=== PATIENT | female | born 1970 | race Caucasian/White ===

== ENCOUNTER 2023-02-24 17:29 | Emergency (ER) | payer OTHER ==
--- OUTSIDE RECORDS SUMMARY | 2023-02-24 17:33 | XMS REPORT | Continuity of Care Document ---
:1970 Author Organization [facility] t Address [address] [place] [address] [place] [id number] Care Team Providers Name Role Phone LUNA GUERRA Primary Care Physician Unavailable Joyce Shaver MD Attending Clinician Alonso Reyes MD Attending Clinician Doctor Unassigned, Humphrey Attending Clinician Unavailable Yary Elizabeth Attending Clinician [phone] Brenda Ruiz MD Attending Clinician YARY REILLY Attending Clinician Unavailable Provider, [facility] Attending Clinician Unavailable DULCE PENA Attending Clinician Unavailable EbrahiDulce Lange Attending Clinician Unknown, Attending Attending Clinician Unavailable Radiology Attending Clinician Unavailable RADIOLOGY Attending Clinician Unavailable Lab, [facility] Attending Clinician Unavailable Mandie Rolon Attending Clinician MANDIE HERBERT Attending Clinician Unavailable BILL SIMPSON Attending Clinician Unavailable MD BILL SIMPSON Attending Clinician Unavailable Luna Zimmerman Attending Clinician Stone Mayfield MD Attending Clinician MD BILL SIMPSON Admitting Clinician Unavailable Payers Payer Name Policy Type Policy Number Effective Date Expiration Date S ource Problems Condition Condition Condition Status Onset Resolution Last Treating Co mments Source Name Details Category Date Date Treatment Clinician Date Right ear Right ear Disease Active 0 Uni vers pain pain 1-25 ity of 00:00: [place] [facility] Right ear Right ear Disease Active 2019- Uni vers pain pain 1-25 ity of 00:00: [address] Allergies, Adverse Reactions, Alerts Allergy Allergy Status Severity Reaction(s) Onset Inactive Treating Comm ents Source Name Type Date Date Clinician NO KNOWN Drug Active Univers ALLERGIE Class ity of [facility] Social History Social Habit Start Date Stop Date Quantity Comments Source History [facility]MI University o f Alcohol Frequency [facility] edical Branch History SDMI University o f Alcohol Std Drinks [facility] History [facility] o f Alcohol Binge [facility] [address] Exposure to Not sure University of SARS-CoV-2 (event) [facility] Tobacco use and 2023-02-17 2023-02-17 Smokeless [facility] exposure 00:00:00 00:00:00 tobacco non-user Hospital Alcohol intake 2023-02-17 2023-02-17 Current drinker Metho dist 00:00:00 00:00:00 of [facility] (finding) History of Social 2023-02-17 2023-02-[address] function 00:00:00 00:00:00 Hospital Alcohol Comment 2023-02-17 2023-02-17 casual [facility] 00:[facility] 00[facility]00:00 Hospital Cigarettes smoked 2018-01-16 2018-01-16 Univers ity of current (pack per 00:00:00 00:00:00 [facility] ) - Reported Branch Cigarette 2018-01-16 2018-01-16 University of pack-years 00:00:00 00:00:00 [facility] History of tobacco 1998-01-16 Cigarette Smoker University of use 00:00:00 [facility] Sex Ass[birth year] At [birth year] [facility]00 Hospital Smoking Status Start Date Stop Date Source Never smoked tobacco [facility] Former smoker 2018-01-16 00:00:00 2018-01-16 00:00:[address] [facility] Medications Ordered Filled Start Stop Current Ordering Indication Dosage Frequency Signature Comments Components Source Medication Medication Date Date Medication? Clinician (SIG) Name Name acetaminoph 2022- Yes 1000mg Q6H Take 2 M ethodi en (Tylenol 5-19 06-[address] Extra 00:00: 04:59 (1,000 mg Hospit a Strength) 00 :00 total) by l 500 MG mouth tablet every 6 (six) hours as needed for moderate pain for up to 30 days. ondansetron 2022- Yes 8mg Q8H Take 1 Met hodi ODT 02-17 tablet (8 st (ZOFRAN-ODT 00:00: 04:59 mg total) Hospita ) 8 MG 00 :00 by mouth l disintegrat every 8 ing tablet (eight) hours as needed for nausea or vomiting for up to 30 days. ibuprofen 2022- Yes 600mg Q6H Take 1 Meth karina (ADVIL) 600 02-[address] MG tablet 00:00: 04:59 (600 mg Hosp argelia 00 :00 total) by l mouth every 6 (six) hours as needed for mild pain or moderate pain for up to 20 days. nitrofurant 2022- Yes 100mg Q.5D Take 1 Me thodi oin, 02-[address] macrocrysta 00:00: 04:59 (100 mg Ho spita l-monohydra 00 :00 total) by l te, mouth 2 (Macrobid) (two) 100 MG times a capsule day for 7 days. traMADoL 2022- [place] [id number] 50mg Q6H Take 1 Metho di (ULTRAM) 50 02-17 tablet (50 s t mg tablet 00:00: 04:59 mg total) Ho spita 00 :00 by mouth l every 6 (six) hours as needed for moderate pain for up to 3 days .acute pain. sulfamethox 2020-10- No [id number] 1{tbl} Take 1 Univers azole-trime 10-17 [id number] tablet by ity of thoprim 00:00: 05:59 mouth 2 [place] (BACTRIM 00 :00 (two) Medical DS) 800-160 times Branch mg per daily for tablet 7 days. venlafaxine 2020-10 Yes Univer s XR 37.5 mg 0-11 ity of 24 hr 00:00: [place] capsule 00 Medical Branch venlafaxine 2020-10 Yes Univer s XR 37.5 mg 0-11 ity of 24 hr 00:00: [place] capsule 00 Medical Branch venlafaxine 2020-10 Yes Univer s XR 37.5 mg 0-11 ity of 24 hr 00:00: [place] capsule Medical Branch venlafaxine 2020-10 Yes Univer s XR 37.5 mg 0-11 ity of 24 hr 00:00: [place] capsule Medical Branch venlafaxine 2020-10 Yes Univer s XR 37.5 mg 0-11 ity of 24 hr 00:00: [place] capsule Medical Branch venlafaxine 2020-10 Yes Univer s XR 37.5 mg 0-11 ity of 24 hr 00:00: [place] capsule Medical Branch venlafaxine 2020-10 Yes Univer s XR 37.5 mg 0-11 ity of 24 hr 00:00: [place] capsule 00 Medical Branch No known 2018- No Univers medications 8-06 ity of 14:07: [place] 58 Medical Branch triamcinolo Yes [id number] Apply to [address] area(s) 3 ity of acetonide 00:00: (three) [place] 0.1 % 00 times Medical ointment daily. Branch hydrOXYzine Yes [id number] 1-2 tabs Univers 25 mg 7- Every ity of tablet 00:00: 3-6hr as [place] 00 needed for Medical itch or Branch rash, at least 3 times a day. triamcinolo 2019- No [id number] Apply to [place] [address] 05-07 area(s) 3 ity of acetonide 00:00: 00:00 (three) [place] 0.1 % 00 :00 times Medical ointment daily. Branch hydrOXYzine 2018- 2019- No [id number] 1-2 tabs Univers 25 mg -27 05-07 Every ity of tablet 00:00: 00:00 3-6hr as [place] 00 :00 needed for Medical itch or Branch rash, at least 3 times a day. triamcinolo 2018- 2019- No [id number] Apply to [place] [address] 05-07 area(s) 3 ity of acetonide 00:00: 00:00 (three[place] 0.1 % 00 :00 times Medical ointment daily. Branch hydrOXYzine 2019- No [id number] 1-2 tabs Univers 25 mg 04-27 Every ity of tablet 00:00: 00:00 3-6hr as [place] 00 :00 needed for Medical itch or Branch rash, at least 3 times a day. cephALEXin 2019- No [id number] 500mg Take 1 Univers 500 mg 04-27 tablet by ity of tablet 00:00: 04:59 mouth 2 [place] 00 :00 (two) Medical times Branch daily for 5 days. May use capsules bromphenira Yes [id number] 5mL Take 5 mL Univers mine-pseudo 10-30 [id number] by mouth 4 i ty of ephedrine-D 00:00: (four[place] (BROMFED 00 times Medical DM) 2-30-10 daily as Bran ch mg/5 mL needed for syrup Congestion /Allergies . bromphenira Yes [id number] 5mL Take 5 mL Univers mine-pseudo 10-30 [id number] by mouth 4 i ty of ephedrine-D 00:00: (four[place] (BROMFED 00 times Medical DM) 2-30-10 daily as Bran ch mg/5 mL needed for syrup Congestion /Allergies . bromphenira 2019- No [id number] 5mL Take 5 mL Univers mine-pseudo -05-07 62859 by mouth 4 ity of ephedrine-D 00:00: 00:00 (four) [place] as M (BROMFED 00 :00 times Medical DM) 2-30-10 daily as Bran ch mg/5 mL needed for syrup Congestion /Allergies . bromphenira 2019- No [id number] 5mL Take 5 mL Univers mine-pseudo 10-30 [id number] by mouth 4 ity of ephedrine-D 00:00: 00:00 (four) [place] as M (BROMFED 00 :00 times Medical DM) 2-30-10 daily as Bran ch mg/5 mL needed for syrup Congestion /Allergies . No known No [facility] known No Univers [facility] No known No Univers medications [facility] No known No Univers medications [facility] No known No Univers medications [facility] [place] [facility] Immunizations Ordered Filled Immunization Date Status Comments Sour e Immunization Name Name TDAP 2021-07-27 Completed University of 00:00: [place] [facility] TDAP 2021-07-27 Completed University of 00:00:00 [place] [facility] TDAP 2021-07-27 Completed University of 00:00:00 [place] [facility] TDAP 2021-07-27 Completed University of 00:00:00 [place] [facility] TDAP 2021-07-27 Completed University of 00:00:00 [place] [facility] TDAP 2021-07-27 Completed University of 00:00:00 [place] [facility] TDAP 2021-07-27 Completed University of 00:00:00 [facility] Branch TDAP 2019-04-27 Completed University of 00:00:00 [place] [facility] TDAP 2019-04-27 Completed University of 00:00:00 [place] [facility] TDAP 2019-04-27 Completed University of 00:00:00 [facility] Branch TDAP 2019-04-27 Completed University of 00:00:00 [facility] Branch TDAP 2019-04-27 Completed University of 00:00:00 [place] [facility] TDAP 2019-04-27 Completed University of 00:00:00 [facility] Branch TDAP 2019-04-27 Completed University of 00:00:00 [place] [facility] TDAP 2019-04-27 Completed University of 00:00:00 [place] [facility] Tdap 2019-04-27 Completed University of 00:00:00 [place] [facility] Tdap 2019-04-27 Completed University of 00:00:00 [facility] Branch Tdap 2019-04-27 Completed University of 00:00:00 [facility] Branch TDAP 2019-04-27 Completed University of 00:00:00 [facility] Branch TDAP 2019-04-27 Completed University of 00:00:00 [facility] Branch TDAP 2019-04-27 Completed University of 00:00:00 [facility] Branch TDAP 2019-04-27 Completed University of 00:00:00 [facility] Branch TDAP 2019-04-27 Completed University of 00:00:00 [facility] Vital Signs Vital Name Observation Time Observation Value Comments Source Systolic blood 2021-08-17 22:35:00 131 mm[Hg] Univer sity of pressure [facility] Diastolic blood 2021-08-17 22:35:00 82 mm[Hg] Unive rsity of pressure [place] [facility] Heart rate 2021-08-17 22:35:00 65 /min Universi ty [facility] [place] [facility] Body temperature 2021-08-17 22:35:00 36.89 P[place]a Univ ersity of [place] [facility] Respiratory rate 2021-08-17 22:35:00 19 /min Univ ersity of [place] [facility] Body height 2021-08-17 22:35:00 162.6 cm Universi ty [facility] [place] [facility] Body weight 2021-08-17 22:35:00 61.145 kg Universi ty [facility] [place] [facility] BMI 2021-08-17 22:35:00 23.14 kg/m2 Universi ty of [place] [facility] Oxygen saturation in 2021-08-17 22:35:00 98 /min University of Arterial blood by [place] [employer] [place] Pulse oximetry Branch Systolic blood 2021-08-12 23:00:00 130 mm[Hg] Univer sity of pressure [place] [facility] Diastolic blood 2021-08-12 23:00:00 86 mm[Hg] Unive rsity of pressure [place] [facility] Heart rate 2021-08-12 23:00:00 78 /min Universi ty [facility] [place] [facility] Body temperature 2021-08-12 23:00:00 36.22 [place] Univ ersity of [place] [facility] Respiratory rate 2021-08-12 23:00:00 16 /min Univ ersity of [place] [facility] Body weight 2021-08-12 23:00:00 61.281 kg Universi ty [facility] [place] [facility] BMI 2021-08-12 23:00:00 23.19 kg/m2 Universi ty [facility] [place] [facility] Oxygen saturation in 2021-08-12 23:00:00 100 /min University of Arterial blood by [facility] Pulse oximetry Branch Systolic blood 2021-07-27 23:29:00 131 mm[Hg] Univer sity of pressure [place] [facility] Diastolic blood 2021-07-27 23:29:00 73 mm[Hg] Unive rsity of pressure [place] [facility] Heart rate 2021-07-27 23:29:00 73 /min [facility]i ty [facility] [place] [facility] Body temperature 2021-07-27 23:29:00 36.61 [place] Univ ers[facility] [place] [facility] Respiratory rate 2021-07-27 23:29:00 16 /min Univ ersity of [place] [facility] Body height 2021-07-27 23:29:00 162.6 cm Universi ty of [place] [facility] Body weight 2021-07-27 23:29:00 58.968 kg Universi ty of [place] [facility] BMI 2021-07-27 23:29:00 22.31 kg/m2 Universi ty of [place] [facility] Oxygen saturation in 2021-07-27 23:29:00 99 /min University of Arterial blood by [facility] Pulse oximetry Branch Systolic blood 2019-05-07 19:07:00 127 mm[Hg] Univer sity of pressure [place] [facility] Diastolic blood 2019-05-07 19:07:00 81 mm[Hg] Unive rsity of pressure [place] [facility] Heart rate 2019-05-07 19:07:00 63 /min Universi ty of [place] [facility] Body temperature 2019-05-07 19:07:00 37.06 [place] Univ ersity of [place] [facility] Body height 2019-05-07 19:07:00 162.6 cm Universi ty [facility] [place] [facility] Body weight 2019-05-07 19:07:00 56.246 kg Universi ty [facility] [place] [facility] BMI 2019-05-07 19:07:00 21.28 kg/m2 Universi ty of [place] [facility] Oxygen saturation in 2019-05-07 19:07:00 99 /min University of Arterial blood by [facility] Pulse oximetry Branch Systolic blood 2019-04-27 16:46:00 124 mm[Hg] Univer sity of pressure [place] [facility] Diastolic blood 2019-04-27 16:46:00 66 mm[Hg] Unive rsity of pressure [place] [facility] Heart rate 2019-04-27 16:46:00 81 /min Universi ty [facility] [place] [facility] Body temperature 2019-04-27 16:46:00 36.78 [place] Univ ersity of [place] [facility] Respiratory rate 2019-04-27 16:46:00 18 /min Univ ersity of [place] [facility] Body height 2019-04-27 16:46:00 162.6 cm Universi ty [facility] [place] [facility] Body weight 2019-04-27 16:46:00 55.702 kg Universi ty [facility] [place] [facility] BMI 2019-04-27 16:46:00 21.08 kg/m2 Universi ty [facility] [place] [facility] Oxygen saturation in 2019-04-27 16:46:00 98 /min University of Arterial blood by [facility] Pulse oximetry Branch Systolic blood 2023-02-17 23:07:00 140 mm[Hg] [facility] pressure Diastolic blood 2023-02-17 23:07:00 80 mm[Hg] [facility] pressure Heart rate 2023-02-17 23:07:00 65 /min [facility] Body temperature 2023-02-17 23:07:00 36.72 P[place]a [facility] [place] [facility] Respiratory rate 2023-02-17 23:07:00 18 /min [facility] [place] [facility] Oxygen saturation in 2023-02-17 23:07:00 100 /min [facility] Arterial blood by Pulse oximetry Body height 2023-02-17 18:04:00 162.6 cm [facility] Body weight 2023-02-17 18:04:00 59.875 kg [facility] BMI 2023-02-17 18:04:00 22.66 kg/m2 [facility] Procedures Procedure Date / Time Performing Clinician Source Performed US PELVIS TRANSABD W 2023-02-17 22:18:00 [facility] TRANSVAG CT RENAL STONE PROTOCOL 2023-02-17 20:03:29 [facility] URINE CULTURE 2023-02-17 19:16:00 [facility] CBC WITH PLATELET AND 2023-02-17 18:59:00 [facility] DIFFERENTIAL COMPREHENSIVE METABOLIC 2023-02-17 18:59:00 [facility] PANEL LIPASE LEVEL 2023-02-17 18:59:00 [facility] URINALYSIS 2023-02-17 18:59:00 [facility] HCG QUALITATIVE, URINE 2023-02-17 18:59:00 [facility] SCREEN ESTIMATED GFR 2023-02-17 18:59:00 [facility] US VASCULAR SCREENING 2022-07-12 14:01:37 AmyAlonso barriga [facility] HEART SCAN PLUS CT HEART SCAN PLUS W 2022-07-12 12:24:58 Alonso Reyes [facility] PHYSICIAN ORDER EXTERNAL PROVIDER 2021-09-07 06:01:00 Doctor Unassigned, No [facility] RECORDS Name Medical Branch XR HAND <3 VW LEFT 2021-08-12 23:20:00 Dulce Pena [facility] Medical Branch TDAP VACCINE, >11 YRS, 2021-07-27 23:52:18 LeightongeraldineEvangelist ogden [facility] Medical Branch NOTICE OF PRIVACY 2021-06-30 15:09:50 Doctor Unassigned, No [facility] Medical Branch CONSENT/REFUSAL FOR 2021-06-30 15:09:35 Doctor Unassigned, No Un iversity [facility] DIAGNOSIS AND TREATMENT [facility] Medical Branch ASSIGNMENT OF BENEFITS 2021-06-30 15:09:17 Doctor Unassigned, No [facility] BOOSTRIX TDAP >10 YRS 2019-04-27 17:02:10 Stone Mayfield [facility] Medical Branch CONSENT/REFUSAL FOR 2019-04-27 16:35:55 Doctor Unassigned, No Un iversity [facility] DIAGNOSIS AND TREATMENT [facility] Medical Branch ASSIGNMENT OF BENEFITS 2019-04-27 16:35:43 Doctor Unassigned, No [facility] Plan of Care Planned Activity Planned Date Details Comments Source Future Scheduled 2023-02-23 Hepatitis C screening [facility] Test 09:07:13 (procedure) [code = 262232620] Future Scheduled 2023-02-23 Screening for [facility] Test 09:07:13 malignant neoplasm of cervix (procedure) [code = 519274772] Future Scheduled 2023-02-23 SHINGLES VACCINES (1 Met [facility] Test 09:07:13 of 2) [code = SHINGLES VACCINES (1 of 2)] Future Scheduled 2023-02-23 COVID-19 VACCINE (3 - [facility] Test 09:07:13 Booster for Moderna series) [code = COVID-19 VACCINE (3 - Booster for Moderna series)] Future Scheduled 2023-02-23 BREAST CANCER [facility] Test 09:07:13 SCREENING [code = BREAST CANCER SCREENING] Future Scheduled 2023-02-23 INFLUENZA VACCINE Method [facility] Test 09:07:13 [code = INFLUENZA VACCINE] Future Scheduled 2023-02-23 COLONOSCOPY SCREENING [facility] Test 09:07:13 [code = COLONOSCOPY SCREENING] Encounters Start End Encounter Admission Attending Care Care Encounter Source Date/Time Date/Time Type Type Clinicians Facility Department ID 2023-02-17 2023-02-17 Emergency Chhaya, 1.2.840.1 [id number] Methodi 12:59:00 18:08:00 Joyce Rodriguez [address]841.1.[address] 3.430.2.7 Hospit a .3.620103 l .8 2023-02-17 2023-02-17 Emergency CHHAYA, [facility] [id number] 00:00:00 00:00:[address] 2023-02-17 2023-02-17 Travel 1.2.840.1 1.2.350.137 [id number] Methodi 00:00:00 00:00:[address] 3.430.2.7 0.2.7.3.698 Ho spita .3.669208 084.8 l .8 2022-07-12 2022-07-12 [facility] 1.2.840.1 [id number] Methodi 07:07:19 23:59:00 Encounter Alonso 31165.1.[address] 3.430.2.7 Hospit a .3.303359 l .8 2022-07-12 2022-07-12 [facility] 1.2.840.1 [id number] Methodi 07:06:50 07:06:50 Encounter Alonso 71936.1.[address] 3.430.2.7 Hospit a .3.568564 l .8 2022-07-12 2022-07-12 Travel 1.2.840.1 1.2.472.713 [id number] Methodi 00:00:00 00:00:[address] 3.430.2.7 0.2.7.3.698 Ho spita .3.376072 084.8 l .8 2022-07-12 2022-07-12 Outpatient AMY, [facility] [id number] 00:00:00 00:00:00 ALONSO [address] 2022-07-12 2022-07-12 Outpatient AMY, [facility] [id number] 00:00:00 00:00:00 ALONSO [address] 2022-06-27 2022-06-27 Travel 1.2.840.1 1.2.561.237 [id number] Methodi 00:00:00 00:00:[address] 3.430.2.7 0.2.7.3.698 Ho spita .3.432976 084.8 l .8 2022-06-27 2022-06-27 Transcribe Amy, 1.2.840.1 [id number] Methodi 00:00:00 00:00:00 Orders Alonso 12184.1.[address] 3.430.2.7 Hospit a .3.854877 l .8 2021-09-07 2021-09-07 Orders Doctor SONY 1.2.840.114 [id number] Univers 00:00:00 00:00:00 Only Unassigned, JACKY 350.1.13.10 ity of Humphrey [facility] 4.2.7.2.686 [place] as [id number] [address] 2021-08-17 2021-08-17 Urgent Yary Reilly [facility] 1.2. 840.114 [id number] Univers 16:31:58 17:10:30 Care 350.1.13.10 ity of ULM 4.2.7.2.686 [place] as NAM?BLEA [phone] [address] MEDICAL OFFICE BUILDING 2021-08-17 2021-08-17 Outpatient R LISA [facility] [id number] Univers 16:20:00 17:10:[address] [facility] 2021-08-13 2021-08-13 Telephone Provider, [facility] 1.2.840.114 [id number] Univers 00:00:00 00:00:00 Ang Liam HEALTH 350.1.13.10 it y of [facility]gent [facility] [place] 4.2.7.2.686 [place] NAM?BLEA [id number] [facility] [address] MEDICAL OFFICE BUILDING 2021-08-12 2021-08-12 Outpatient R FLAKO [facility] [id number] Univers 17:08:39 23:59:00 DULCE itjanki [facility] [place] 2021-08-12 2021-08-12 Hospital [facility] 1.2.975.757 [id number] Univers 17:08:39 23:59:00 Encounter Rania HEALTH 350.1.13.10 ity of [place] 4.2.7.2.686 Elias as NAM?BLEA [id number] [facility] [address] MEDICAL OFFICE [facility] 2021-08-12 2021-08-12 Urgent Ebsdcarlo, Dulce [facility] 1.2.840.114 [id number] Univers 16:56:04 17:33:41 Care Joseph Brenda HEALTH 350.1.13.10 ity of [place] 4.2.7.2.686 Elias as NAM?BLEA [id number] [address] MEDICAL OFFICE [facility] 2021-08-12 2021-08-12 Patient [facility] 1.2.840.114 [id number] Univers 00:00:00 00:00:00 Secure Msg Dulce HEALTH 350.1.13.10 ity of [place] 4.2.7.2.686 Eli[place] as NAM?BLEA [id number] [facility] [address] MEDICAL OFFICE BUILDING 2021-07-27 2021-07-27 Outpatient R FLAKO [facility] [id number] Univers 20:00:00 19:00:48 DULCE itjanki [facility] [place] 2021-07-27 2021-07-27 Urgent Provider, Thony Db Urgent Care [facility] 1.2.840.114 [id number] Univers 18:27:06 19:00:48 Care Eileen, [facility] 350.1.13.10 ity of [place] 4.2.7.2.686 Elias as Nam?Blea [id number] Pa ryann de la o [address] Medical Office Building 2021-06-30 2021-06-30 Hospital Radiology [facility] 1.2.840.114 [id number] Univers 10:00:00 23:59:00 Encounter [place] 350.1.13.10 ity of [place] 4.2.7.2.686 [place] [id number] [facility] [address] 2021-06-30 2021-06-30 Outpatient R RADIOLOGY [facility] RAD [id number] Univers 00:00:00 00:00:[address] [facility] 2021-04-29 2021-04-29 Laboratory Lab, [facility] Fam Po I [facility] 1.2. 840.114 [id number] Univers 13:16:24 13:36:24 Only Mandie [facility] 350.1.13.10 ity of [place] 4.2.7.2.686 Elias as Professio [id number] [facility] nal [address] Office [facility] One 2021-04-29 2021-04-29 Outpatient R PIEDAD [facility] [id number] Univers 13:20:00 13:20:00 MANDIE ity [facility] [place] 2020-10-28 2020-10-28 Outpatient CALVIN, [facility] [id number] 00:00:00 00:00:00 BILL 852 Method i 2020-10-26 2020-10-26 Outpatient CALVIN, [facility] [id number] 00:00:00 00:00:[address] 2020-08-17 2020-08-17 Laboratory Lab, [facility] Fam Pob I [facility] 1.2. 840.114 [id number] Univers 10:38:16 10:58:16 Only Luna Guerra [facility] 350.1.13.10 ity of [place] 4.2.7.2.686 Elias as Professio [id number] Pa dical nal [address] Office [facility] [facility] 2020-08-17 2020-08-17 Outpatient R [facility] [id number] Univers 10:40:00 10:40:00 ity [facility] 2020-08-17 2020-08-17 Letter Doctor CARDOZA [id number] Univers 00:00:00 00:00:00 (Out) Unassigned, JACKY [id number] ity of [facility] [id number] Elias as [phone] [address] 2020-08-17 2020-08-17 Letter Doctor SONY [id number] Univers 00:00:00 00:00:00 (Out) Unassigned, JACKY [id number] ity of [facility] [id number] Elias as [phone] [address] 2020-08-17 2020-08-17 Letter Doctor SONY [id number] Univers 00:00:00 00:00:00 (Out) Unassigned, JACKY [id number] ity of [facility] [id number] Elias as [phone] [address] 2019-05-07 2019-05-07 Office PERCY Guerra [id number] Univers 13:52:06 14:31:22 Visit Luna Harper [facility] [id number] i ty of [place] [id number] Elias as Professio [phone] [facility] [address] Office Building One 2019-04-27 2019-04-27 Urgent [facility] [id number] Univers 11:36:18 13:07:07 Care Unknown, Attending Health [id number] ity of Surgical [id number] Elias as Specialti [phone] Pa dical es [facility] 2019-04-27 2019-04-27 Orders Doctor SONY [id number] Univers 00:00:00 00:00:00 Only Unassigned, JACKY [id number] ity of [facility] [id number] Elias as [phone] [address] Results Test Description Test Time Test Comments Results Result Comments Source SARS-CoV-2 (COVID-19) RNA [Presence] in Respiratory sp ecimen by 2020-10-26 14:33:58 LION with probe detection Test Item Value Reference Range Interpretation Comme nts SARS-CoV-2 (COVID-19) RNA [Presence] in Respiratory Not detected No t-Detected specimen by LION with probe detection (test code = 05854-0) FAIZAN PASTOR
[2023-02-24 18:21] LABS: Specific Gravity 1.023 (1.005-1.030); Urine Bilirubin NEGATIVE (Negative); Urine Blood Negative (Negative); Urine Clarity Clear (Clear); Urine Color Light-Yellow (Yellow); Urine Glucose NEGATIVE (Negative); Urine Protein NEGATIVE (Negative); Urine Urobilinogen Normal (Normal); Urine pH 6.5 (5.0-7.0)
[2023-02-24 18:22] LABS: Absolute Lymphocytes (CBC) 1.8 K/uL (0.7-4.9); Hematocrit 40.3 % (36.0-45.0); MCV 93.2 fL (80-100); MPV 8.1 fL (7.6-11.3); RBC Red Blood Cell Count 4.33 M/uL (3.86-4.86)
[2023-02-24] MEDS ORDERED: NA CHLORIDE 0.9% 1,000 ML ONE (18:22)
[2023-02-24] MEDS ORDERED: MORPHINE 4 MG/ML SYR ONE ×2 (18:22→20:58)
[2023-02-24] MEDS ORDERED: ONDANSETRON 4 MG/2 ML VIAL ONE (18:22)
[2023-02-24 18:40] LABS: Albumin 4.2 g/dL (3.4-5.0); Bilirubin Total 0.6 mg/dL (0.2-1.0); Potassium 3.7 mEq/L (3.5-5.1); Protein, Total 7.6 g/dL (6.4-8.2)
--- NOTE | 2023-02-24 21:00 | RAD REPORT ---
EXAM DESCRIPTION: CT - Abdomen Pelvis W Contrast - 02/24/2023 8:18 pm CLINICAL HISTORY: RLQ abdomen pain COMPARISON: No comparisons TECHNIQUE: Thin cut axial CT imaging of the abdomen and pelvis was performed following intravenous a dministration of 100 mL Isovue 300. Multiplanar reformats were generated and reviewed. All CT scans are performed using dose optimization technique as appropriate and may include automated exposure control or mA/KV adjustment according to patient size. FINDINGS: No suspicious findings in the lung bases. 5 millimeter left lower lobe calcified granuloma . The liver, spleen, and pancreas show no suspicious findings. Gallbladder and biliary tree are also wi thout suspicious finding. Symmetric renal function is seen with no hydronephrosis or suspicious renal mass. No dilated bowel loops or bowel wall thickening. Appendix is normal in appearance. No free air, free fluid or inflammatory stranding. No hernia, mass or bulky lymphadenopathy. The urinary bladder is wit hout significant finding. Bulky appearance of the uterus with the dominant marginally enhancing centrally hypoattenuating, slig htly heterogeneous ovoid mass measuring 8.2 x 6.9 centimeter in greatest axial dimension, and 6.6 mary timeter in greatest craniocaudal extent. No suspicious bony findings. IMPRESSION: No acute intra-abdominal process. Bulky appearance of the uterus with a dominant 3.2 centimeter mass with features suggestive of the de generating right fundal/fibroid.
--- NOTE | 2023-02-24 21:25 | ER ---
Nurse's Notes [facility] Name: Luz Elena Simms Age: 52 yrs Sex: Female : 1970 Arrival Date: 02/24/2023 Time: 17:29 Bed 19 Private MD: Diagnosis: Lower abdominal pain, unspecified Presentation: 02/24 17:38 Chief complaint: Patient states: RLQ PAIN x1 WK. Coronavirus screen: At this time, the bp client does not indicate any symptoms associated with coronavirus-19. Ebola Screen: No symptoms or risks identified at this time. Initial Sepsis Screen: Does the patient meet any 2 criteria? No. Patient's initial sepsis screen is negative. Does the patient have a suspected source of infection? No. Patient's initial sepsis screen is negative. Risk Assessment: Do you want to hurt yourself or someone else? Patient reports no desire to harm self or others. Onset of symptoms is unknown. 17:38 Method Of Arrival: Ambulatory bp 17:38 Acuity: KAYLA 3 bp Triage Assessment: 17:39 General: Appears uncomfortable, Behavior is cooperative, appropriate for age, anxious. bp Pain: Complains of pain in right lower quadrant. EENT: No deficits noted. Neuro: No deficits noted. Cardiovascular: No deficits noted. Respiratory: No deficits noted. GI: Reports lower abdominal pain. : No signs and/or symptoms were reported regarding the genitourinary system. Derm: No deficits noted. Musculoskeletal: No deficits noted. Historical: - Allergies: 17:39 No Known Allergies; bp - Home Meds: 17:39 venlafaxine 75 mg oral Capsule, ER 24 hr daily [Active]; bp - PMHx: 17:39 Anxiety; Endometriosis of vagina; bp - Immunization history:: Adult Immunizations up to date. - Social history:: Smoking status: Patient denies any tobacco usage or history of. Patient uses alcohol, only on a social basis. Screenin:34 [facility] ED Fall Risk Assessment (Adult) History of falling in the last 3 months, db including since admission No falls in past 3 months (0 pts) Confusion or Disorientation No (0 pts) Intoxicated or Sedated No (0 pts) Impaired Gait No (0 pts) Mobility Assist Device Used No (0 pt) Altered Elimination No (0 pt) Score/Fall Risk Level 0 - 2 = Low Risk Oriented to surroundings, Maintained a safe environment. Abuse screen: Denies threats or abuse. Denies injuries from another. Nutritional screening: No deficits noted. Tuberculosis screening: No symptoms or risk factors identified. Assessment: 17:40 General: SEE TRIAGE NOTE. bp 18:15 Reassessment: notified CT patient is done drinking CT contrast. db 18:34 Reassessment: Patient appears in no apparent distress at this time. Patient and/or db family updated on plan of care and expected duration. Pain level reassessed. Patient is alert, oriented x 3, equal unlabored respirations, skin warm/dry/pink. abdominal pain seen last Monday at [facility] for similar pain. Patient here for appendectomy r/o. Pain: Complains of pain in abdomen. 20:02 Reassessment: Patient appears in no apparent distress at this time. Patient and/or aa9 family updated on plan of care and expected duration. Pain level reassessed. Patient is alert, oriented x 3, equal unlabored respirations, skin warm/dry/pink. 20:17 Reassessment: Patient appears in no apparent distress at this time. Patient and/or aa9 family updated on plan of care and expected duration. Pain level reassessed. Patient is alert, oriented x 3, equal unlabored respirations, skin warm/dry/pink. pt taken to CT via wheelchair. 20:30 Reassessment: Patient appears in no apparent distress at this time. pt c/o 7/10 RLQ aa9 pain, denies nausea notified provider see [facility] for orders. Vital Signs: 17:38 BP 161 / 108; Pulse 68; Resp 16; Temp 97.7; Pulse Ox 100% ; Weight 58.97 kg; Height 5 bp ft. 4 in. ; 18:23 BP 148 / 85; Pulse 72; Resp 18; Pulse Ox 100% on R/A; db 18:30 BP 149 / 81; Pulse 64; Resp 16; Pulse Ox 100% on R/A; Pain 7/10; db 20:30 BP 148 / 82; Pulse 59; Resp 17; Pulse Ox 100% on R/A; aa9 17:38 Body Mass Index 22.31 (58.97 kg, 162.56 cm) bp 18:30 Pain Scale: Adult db ED Course: 17:32 Patient arrived in ED. am2 17:32 Armando Steel PA is PHCP. m 17:32 Niko Matt MD is Attending Physician. [facility] 17:37 PHCP role handed off by Armando Steel PA cp 17:37 George Polk PA is PHCP. cp 17:39 Triage completed. bp 17:39 Arm band placed on. bp 17:56 Marilyn Lu, RN is Primary Nurse. db 18:15 Inserted saline lock: 20 gauge in right antecubital area, using aseptic technique. db Blood collected. 18:32 Patient has correct armband on for positive identification. Side rails up X 1. Pulse ox db on. NIBP on. Warm blanket given. 20:20 CT Abd/Pelvis - PO and IV Contrast In Process Unspecified. EDMS 21:47 No provider procedures requiring assistance completed. IV discontinued, intact, mb9 bleeding controlled, No redness/swelling at site. Pressure dressing applied. Administered Medications: 18:30 Drug: morphine IVP or IV 4 mg Route: IVP; Infused Over: 4 mins; Site: right antecubital;db 18:31 Drug: NS 0.9% IV 1000 ml Route: IV; Rate: 1 bolus; Site: right antecubital; db 18:31 Drug: Ondansetron IVP 4 mg Route: IVP; Site: right antecubital; db 20:58 Drug: morphine IVP or IV 4 mg Route: IVP; Infused Over: 4 mins; Site: right antecubital;aa9 Medication: 21:47 VIS not applicable for this client. mb9 Outcome: 21:24 Discharge ordered by MD. cp 21:46 Discharged to home ambulatory. mb9 21:46 Condition: stable 21:46 Discharge instructions given to patient, Instructed on discharge instructions, follow up and referral plans. Demonstrated understanding of instructions, follow-up care, medications, Prescriptions given X 2. 21:47 Patient left the ED. mb9 Signatures: Dispatcher [employer] EDMS Armando Steel PA PA jmm Page, Corey, PA PA cp Moreno, Amanda am2 Diego Galindo RN RN bp Avalos, Aylin, RN RN aa9 Marilyn Lu RN RN db Breneman, Mary Beth RN RN mb9 Corrections: (The following items were deleted from the chart) 18:45 18:30 Pain 7/10, Adult; db db
--- NOTE | 2023-02-24 21:25 | EDPHYS ---
Physician Documentation [facility] Name: Luz Elena Simms Age: 52 yrs Sex: Female : 1970 Arrival Date: 02/24/2023 Time: 17:29 Bed 19 Private MD: ED Physician Niko Matt HPI: 02/24 18:00 This 52 yrs old Female presents to ER via Ambulatory with complaints of Abdominal Pain cp - RLQ. 18:00 The patient presents with abdominal pain right lower quadrant. Onset: The cp symptoms/episode began/occurred 1 week(s) ago. The symptoms do not radiate. 18:00 Associated signs and symptoms: Pertinent negatives: blood in stools, constipation, cp diarrhea, fever. 18:00 The symptoms are described as waxing/waning. The patient has been recently seen by a physician: Dr. Bella with similar presenting complaints, performed pelvic exam and referred patient to ED for evaluation and concern for appendicitis. Historical: - Allergies: 17:39 No Known Allergies; bp - Home Meds: 17:39 venlafaxine 75 mg oral Capsule, ER 24 hr daily [Active]; bp - PMHx: 17:39 Anxiety; Endometriosis of vagina; bp - Immunization history:: Adult Immunizations up to date. - Social history:: Smoking status: Patient denies any tobacco usage or history of. Patient uses alcohol, only on a social basis. ROS: 18:05 Constitutional: Negative for body aches, chills, fever, poor PO intake. cp 18:05 Eyes: Negative for injury, pain, redness, and discharge. cp 18:05 ENT: Negative for drainage from ear(s), ear pain, sore throat, difficulty swallowing, difficulty handling secretions. 18:05 Cardiovascular: Negative for chest pain, edema, palpitations. 18:05 Respiratory: Negative for cough, shortness of breath, wheezing. 18:05 Abdomen/GI: Positive for abdominal pain, of the right lower quadrant, Negative for vomiting, diarrhea, constipation. 18:05 : Negative for urinary symptoms, flank pain, vaginal bleeding, vaginal discharge. 18:05 Neuro: Negative for altered mental status, headache, weakness. 18:05 All other systems are negative. Exam: 18:10 Constitutional: The patient appears in no acute distress, alert, awake, non-toxic, well cp developed, well nourished. 18:10 Head/Face: Normocephalic, atraumatic. cp 18:10 Eyes: Periorbital structures: appear normal, Conjunctiva: normal, no exudate, no cp injection, Sclera: no appreciated abnormality, Lids and lashes: appear normal, bilaterally. 18:10 ENT: External ear(s): are unremarkable, Nose: is normal, Mouth: Lips: moist, Oral mucosa: pink and intact, moist, Posterior pharynx: is normal, airway is patent, no erythema, no exudate. 18:10 Chest/axilla: Inspection: normal. 18:10 Cardiovascular: Rate: normal, Rhythm: regular, Edema: is not appreciated. 18:10 Respiratory: the patient does not display signs of respiratory distress, Respirations: normal, no use of accessory muscles, no retractions, labored breathing, is not present, Breath sounds: are clear throughout, no decreased breath sounds, no stridor, no wheezing. 18:10 Abdomen/GI: Inspection: abdomen appears normal, Bowel sounds: active, all quadrants, Palpation: soft, in all quadrants, moderate abdominal tenderness, in the right lower quadrant, voluntary guarding, is elicited in the right lower quadrant. 18:10 Back: ROM is normal, CVA tenderness, is absent. 18:10 Skin: no rash present. 18:10 Neuro: Orientation: to person, place \T\ time. Mentation: is normal, Motor: moves all fours, strength is normal, Sensation: is normal, Gait: is steady. Vital Signs: 17:38 BP 161 / 108; Pulse 68; Resp 16; Temp 97.7; Pulse Ox 100% ; Weight 58.97 kg; Height 5 bp ft. 4 in. ; 18:23 BP 148 / 85; Pulse 72; Resp 18; Pulse Ox 100% on R/A; db 18:30 BP 149 / 81; Pulse 64; Resp 16; Pulse Ox 100% on R/A; Pain 7/10; db 20:30 BP 148 / 82; Pulse 59; Resp 17; Pulse Ox 100% on R/A; aa9 17:38 Body Mass Index 22.31 (58.97 kg, 162.56 cm) bp 18:30 Pain Scale: Adult db MDM: 17:41 Patient medically screened. cp 21:15 Data reviewed: vital signs, nurses notes, lab test result(s), radiologic studies, CT cp scan. 21:15 Differential diagnosis: appendicitis, non-specific abd pain, Pyelonephritis, cp Ureterolithiasis, urinary tract infection. Consideration of Admission/Observation Escalation of care including admission/observation considered. Management of patient was discussed with the following: Carving Machine Operator: DR Jean Baptiste concerning results of CT abdomen/pelvis today negative for appendicitis. Counseling: I had a detailed discussion with the patient and/or guardian regarding: the historical points, exam findings, and any diagnostic results supporting the discharge/admit diagnosis, lab results, radiology results, to return to the emergency department if symptoms worsen or persist or if there are any questions or concerns that arise at home. Response to treatment: the patient's symptoms have markedly improved after treatment. Special discussion: Based on the patient's Hx, exam, and Dx evaluation, there is no indication for emergent surgery or inpatient Tx. It is understood by the patient/guardian that if the Sx's persist or worsen they need to return immediately for re-evaluation. 02/24 17:55 Order name: CBC with Diff; Complete Time: 18:40 cp 02/24 17:55 Order name: CMP; Complete Time: 18:40 cp 02/24 18:40 Interpretation: Normal except: CL 110. cp 02/24 17:55 Order name: Lipase; Complete Time: 18:40 cp 02/24 17:55 Order name: Urinalysis w/ reflexes; Complete Time: 18:40 cp 02/24 18:41 Interpretation: Normal except: UKET 1+. cp 02/24 17:55 Order name: CT Abd/Pelvis - PO and IV Contrast; Complete Time: 21:10 cp 02/24 17:55 Order name: IV Saline Lock; Complete Time: 18:13 cp 02/24 17:55 Order name: Labs collected and sent; Complete Time: 18:13 cp Administered Medications: 18:30 Drug: morphine IVP or IV 4 mg Route: IVP; Infused Over: 4 mins; Site: right antecubital;db 18:31 Drug: NS 0.9% IV 1000 ml Route: IV; Rate: 1 bolus; Site: right antecubital; db 18:31 Drug: Ondansetron IVP 4 mg Route: IVP; Site: right antecubital; db 20:58 Drug: morphine IVP or IV 4 mg Route: IVP; Infused Over: 4 mins; Site: right antecubital;aa9 Disposition Summary: 02/24/23 21:24 Discharge Ordered Location: Home cp Problem: new cp Symptoms: have improved cp Condition: Stable cp Diagnosis - Lower abdominal pain, unspecified cp Followup: cp - With: Private Physician - When: 2 - 3 days - Reason: Recheck today's complaints Discharge Instructions: - Discharge Summary Sheet cp - Abdominal Pain, Adult cp Forms: - Medication Reconciliation Form cp - Thank You Letter cp - Antibiotic Education cp - Prescription Opioid Use cp Prescriptions: - Ibuprofen 800 mg Oral Tablet - take 1 tablet by ORAL route every 8 hours As needed take with food; 30 tablet; cp Refills: 0, Product Selection Permitted - dicyclomine 20 mg Oral Tablet - take 1 tablet by ORAL route 4 times per day; 30 tablet; Refills: 0, Product cp Selection Permitted Signatures: Dispatcher [employer] EDMS George Polk PA PA cp Diego Galindo RN RN bp Karen Gayle RN RN aa9 Marilyn Lu RN RN db
[2023-02-24 22:07] VITALS: TEMP 97.7; O2SAT 100
[2023-02-24 22:16] VITALS: BP 148/82
== END 2023-02-24 21:47 | disposition home or self-care (01) ==
LOC: ER 17:29
DX: R10.31 Right lower quadrant pain (principal); F41.9 Anxiety disorder, unspecified
CPT/HCPCS: 85025; 36415; 81003; 83690; 80053; 74177; 96375; 96374; 99284; Q9967; J2405; J7030